=== PATIENT | male | born 1975 | race African-American/Black ===

== ENCOUNTER 2022-01-07 15:12 | Observation (INO) ==
[2022-01-07 15:40] LABS: ABS Eosinophils 0.1 10^3/ul (0-0.6); ABS Lymphocytes 2.5 10^3/ul (1.0-4.8); ABS Monocytes 0.5 10^3/ul (0-0.8); ABS Neutrophils 1.3 10^3/ul (1.5-7.7); Eosinophil % 2.8 %; Hematocrit 43 % (42-52); Hemoglobin 14.8 g/dL (14.0-18.0); Mean Corpuscular HGB Conc 34 g/dL (31-36); Mean Corpuscular Hemoglobin 31 pg (27-31); Mean Corpuscular Volume 91 fL (80-94); Mean Platelet Volume 7.5 fL (7.4-10.4); Nucleated Red Blood Cells % 0.2; Platelet Count 232 10^3/uL (150-450); Red Blood Count 4.76 10^6 /uL (4.18-5.48); Red Cell Distribution Width 14 % (10-15); White Blood Count 4.4 10^3/uL (3.5-10.8)
[2022-01-07 15:44] LABS: Albumin 3.5 g/dL (3.2-5.2); CO2 Carbon Dioxide 20 mmol/L (22-32); Calcium 7.2 mg/dL (8.6-10.3); Chloride 109 mmol/L (101-111); Sodium 141 mmol/L (135-145)
[2022-01-07 15:50] LABS: ALT 19 U/L (7-52); Albumin/Globulin Ratio 1.8 (1-3); Alkaline Phosphatase 119 U/L (35-149); Blood Urea Nitrogen 12 mg/dL (6-24); Creatine Kinase 77 U/L (10-223); Glucose 216 mg/dL (70-100); Total Protein 5.5 g/dL (6.4-8.9); eGFR CKD-EPI 96.3 (>60)
[2022-01-07] MEDS ORDERED: CALCIUM GLUCONATE 1GM/50ML NS 1 GM/50 ML BAG IV ONE (15:52)
[2022-01-07 15:57] LABS: High Sens Troponin Baseline 7 pg/mL (<20)
[2022-01-07 15:58] LABS: Anion Gap 12 mmol/L (2-11)
[2022-01-07] MEDS ORDERED: NS 0.9% 1000 ml BAG 1,000 ML IV ONE (15:59)
[2022-01-07 16:00] LABS: INR 0.8 (0.89-1.11)
[2022-01-07 16:04] LABS: PCO2 Arterial 49 mmHg (35-45); PO2 Arterial 138 mmHg (80-100)
[2022-01-07 17:21] LABS: High Sensitivity Troponin 1 Hr 10 pg/mL (<20)
[2022-01-07] MEDS ORDERED: levETIRAcetam 1000MG IVPREMIX 1,000 MG/100 ML BAG IVPB ONE (17:28)
[2022-01-07] MEDS ORDERED: Dextrose 50% Syringe 50 ml 25 GM/50 ML SYRINGE IV PUSH PRN (18:15)
[2022-01-07 18:21] LABS: Prolactin 57.3 ng/mL (1.0-20.0)
[2022-01-07 19:53] LABS: Urine Appearance Clear; Urine Bilirubin Negative (Negative); Urine Color Yellow; Urine Glucose 3+ (>=1000 mg/dL) (Negative); Urine Ketones Negative (Negative)
[2022-01-07 19:54] LABS: Urine Blood Negative (Negative); Urine Nitrite Negative (Negative); Urine Protein 1+ (30 mg/dL) (Negative); Urine Urobilinogen 1.0 (Negative) (Negative)
[2022-01-07 20:05] LABS: Acetaminophen < 15 mcg/mL; Alcohol, S < 13 mg/dL (<13); Salicylate < 2.50 mg/dL (<30)
[2022-01-07 20:12] LABS: Urine Bacteria 1+ (Absent); Urine Red Blood Cell Trace(0-2/hpf) (Absent); Urine Squamous Epithelial Cell Present (Absent); Urine White Blood Cell Trace(0-5/hpf) (Absent)
[2022-01-07 20:14] LABS: Urine Benzodiazepine Screen None Detected (None Detect); Urine Cannabinoids Screen Presumptive Positive (None Detect); Urine Opiates Screen None Detected (None Detect)
[2022-01-08 04:16] LABS: ABS Eosinophils 0.1 10^3/ul (0-0.6); ABS Lymphocytes 2.2 10^3/ul (1.0-4.8); ABS Monocytes 0.5 10^3/ul (0-0.8); ABS Neutrophils 1.6 10^3/ul (1.5-7.7); Eosinophil % 2.1 %; Hematocrit 43 % (42-52); Hemoglobin 14.5 g/dL (14.0-18.0); Lymphocyte % 49.7 %; Mean Corpuscular HGB Conc 34 g/dL (31-36); Mean Corpuscular Hemoglobin 31 pg (27-31); Mean Corpuscular Volume 92 fL (80-94); Mean Platelet Volume 7.9 fL (7.4-10.4); Nucleated Red Blood Cells % 0.1; Platelet Count 208 10^3/uL (150-450); Red Blood Count 4.68 10^6 /uL (4.18-5.48); Red Cell Distribution Width 14 % (10-15); White Blood Count 4.5 10^3/uL (3.5-10.8)
[2022-01-08 05:24] LABS: CO2 Carbon Dioxide 25 mmol/L (22-32); Calcium 8.9 mg/dL (8.6-10.3); Chloride 102 mmol/L (101-111); Sodium 137 mmol/L (135-145)
[2022-01-08 05:28] LABS: Anion Gap 10 mmol/L (2-11)
[2022-01-08 05:30] LABS: Blood Urea Nitrogen 13 mg/dL (6-24); Glucose 330 mg/dL (70-100); eGFR CKD-EPI 79.3 (>60)
[2022-01-08] MEDS ORDERED: Insulin GLARGINE 100 un/ml 10 ml VIAL SUBCUT SCH (09:00)
[2022-01-08] MEDS: DULoxetine DR 60 mg CAP PO SCH (09:30)
[2022-01-08] MEDS: Insulin GLARGINE 100 un/ml 10 ml VIAL SUBCUT SCH (09:32)
[2022-01-09] MEDS: Insulin GLARGINE 100 un/ml 10 ml VIAL SUBCUT SCH (09:44)
[2022-01-09] MEDS: DULoxetine DR 60 mg CAP PO SCH (09:45)
[2022-01-09 15:00] LABS: Urine Alcohol Negative mg/dL (Cutoff: 10); Urine Barbiturates Negative; Urine Benzodiazepines Presumptive Positive ng/mL; Urine Cocaine Presumptive Positive ng/mL; Urine Methadone Negative (Negative); Urine Opiates Negative (Negative); Urine Phencyclidine Negative ng/mL (Cutoff: 25); Urine Tetrahydrocannabinol Presumptive Positive ng/mL (Cutoff: 50)
[2022-01-09 15:08] VITALS: BP 153/81
[2022-01-17 06:43] LABS: Ur Benzoylecgonine Confirm 212750 ng/mL (Cutoff: 50); Urine Cocaine Confirm (GC/MS) 13397 ng/mL (Cutoff: 50); Urine Cocaine Interpretation Positive.
== END 2022-01-09 14:25 | disposition home or self-care (01) ==
LOC: ED 15:12 → INTOOBSV 18:08 → EDHOLD 18:08 → MEDTELE 20:48
PROVIDERS: ADMIT Internal Medicine; ATTEND Internal Medicine